=== PATIENT | female | born 1950 | race Caucasian/White ===

== ENCOUNTER → 2023-10-23 08:44 | Outpatient (REF) | payer MEDICARE, OTHER, SELFPAY | LOC: WDC 08:44 | PROVIDERS: ATTENDING PHYSICIAN Obstetrics & Gynecology; FAMILY PHYSICIAN Family Medicine | DX: Z12.31 Encounter for screening mammogram for malignant neoplasm of breast (principal) | CPT/HCPCS: 77063; 77067 ==

== ENCOUNTER → 2023-10-30 08:47 | Outpatient (REF) | payer MEDICARE, OTHER, SELFPAY | LOC: WDC 08:47 | PROVIDERS: ATTENDING PHYSICIAN Obstetrics & Gynecology; FAMILY PHYSICIAN Family Medicine | DX: R92.8 Other abnormal and inconclusive findings on diagnostic imaging of breast (principal) | CPT/HCPCS: 76642 ==

== ENCOUNTER → 2023-11-05 09:51 | Outpatient (REF) | payer MEDICARE, OTHER, SELFPAY ==
--- NOTE | 2023-11-05 13:35 | OID.BR.INTR ---
[facility]igator - Initial
- -
Date of Contact: 11/05/23
Met with patient. Patient given written information on navigator services available at [facility]. Will follow up as needed per protocol.
== END ==
LOC: WDC 09:51
PROVIDERS: ATTENDING PHYSICIAN Obstetrics & Gynecology; FAMILY PHYSICIAN Family Medicine
DX: N63.22 Unspecified lump in the left breast, upper inner quadrant (principal); N63.21 Unspecified lump in the left breast, upper outer quadrant
CPT/HCPCS: 88305; 19083; 77065; 88341; 88342; 88360; A4648

== ENCOUNTER → 2023-11-13 12:43 | Outpatient (REF) | payer MEDICARE, OTHER, SELFPAY | LOC: WDC 12:43 | PROVIDERS: ATTENDING PHYSICIAN Surgery; FAMILY PHYSICIAN Family Medicine | DX: R92.2 Inconclusive mammogram (principal); C50.412 Malignant neoplasm of upper-outer quadrant of left female breast | CPT/HCPCS: 76641 ==

== ENCOUNTER → 2023-11-19 13:02 | Outpatient (REF) | payer MEDICARE, OTHER, SELFPAY | LOC: WDC 13:02 | PROVIDERS: ATTENDING PHYSICIAN Surgery | DX: C50.412 Malignant neoplasm of upper-outer quadrant of left female breast (principal); N63.21 Unspecified lump in the left breast, upper outer quadrant | CPT/HCPCS: 19285; 77065; A4648 ==

== ENCOUNTER → 2023-11-20 07:33 | Outpatient (REF) | payer MEDICARE, OTHER, SELFPAY | LOC: WDC 07:33 | PROVIDERS: ATTENDING PHYSICIAN Surgery | DX: C50.412 Malignant neoplasm of upper-outer quadrant of left female breast (principal) | CPT/HCPCS: 88305; 88307; 76098 ==

== ENCOUNTER → 2024-04-29 14:18 | Outpatient (REF) | payer MEDICARE, OTHER, SELFPAY | LOC: WDC 14:18 | PROVIDERS: ATTENDING PHYSICIAN Surgery; FAMILY PHYSICIAN Family Medicine | DX: R92.8 Other abnormal and inconclusive findings on diagnostic imaging of breast (principal); C50.412 Malignant neoplasm of upper-outer quadrant of left female breast | CPT/HCPCS: 76642 ==

== ENCOUNTER → 2024-09-09 09:47 | Outpatient (REF) | payer MEDICARE, OTHER, SELFPAY | LOC: RAD 09:47 | PROVIDERS: ATTENDING PHYSICIAN Family Medicine; REFERRING PHYSICIAN Internal Medicine Cardiovascular Disease | DX: I65.23 Occlusion and stenosis of bilateral carotid arteries (principal) | CPT/HCPCS: 93880 ==

== ENCOUNTER → 2024-10-02 08:38 | Outpatient (REF) | payer MEDICARE, OTHER, SELFPAY | LOC: HWRAD 08:38 | PROVIDERS: ATTENDING PHYSICIAN Obstetrics & Gynecology; FAMILY PHYSICIAN Family Medicine; REFERRING PHYSICIAN Internal Medicine Hematology & Oncology | DX: N89.8 Other specified noninflammatory disorders of vagina (principal) | CPT/HCPCS: 76830; 76856 ==

== ENCOUNTER → 2024-10-28 07:37 | Outpatient (REF) | payer MEDICARE, OTHER, SELFPAY | LOC: WDC 07:37 | PROVIDERS: ATTENDING PHYSICIAN Family Medicine Geriatric Medicine; FAMILY PHYSICIAN Family Medicine | DX: M81.0 Age-related osteoporosis without current pathological fracture (principal); Z13.820 Encounter for screening for osteoporosis; Z12.31 Encounter for screening mammogram for malignant neoplasm of breast; Z12.39 Encounter for other screening for malignant neoplasm of breast; Z85.3 Personal history of malignant neoplasm of breast; R92.30 Dense breasts, unspecified | CPT/HCPCS: 77063; 77067; 77080 ==

== ENCOUNTER → 2024-11-03 09:07 | Outpatient (REF) | payer MEDICARE, OTHER, SELFPAY ==
[2024-11-03 11:58] LABS: Blood Urea Nitrogen 13 mg/dl (7-17); Calcium 8.9 mg/dl (8.4-10.2); Carbon Dioxide 26 mmol/L (22-30); Chloride 109 mmol/L (98-107); Glucose 105 mg/dl (70-99); Potassium 4.0 mmol/L (3.5-5.1); Sodium 144 mmol/L (135-145); eGFR > 60.00
== END ==
LOC: SDSPAT 09:07
PROVIDERS: ATTENDING PHYSICIAN Obstetrics & Gynecology; FAMILY PHYSICIAN Family Medicine
DX: N85.00 Endometrial hyperplasia, unspecified (principal)
CPT/HCPCS: 36415; 80048; 93005

== ENCOUNTER 2024-11-14 06:28 | Day surgery (SDC) | payer MEDICARE, OTHER, SELFPAY ==
[2024-11-03 13:58] VITALS: BMI 23.7
--- NOTE | 2024-11-04 13:21 | PTCARENOTE ---
Patients 11/03 ECG abnormal- reviewed by Dr. Lancaster- no additional interventions required
[2024-11-14] VITALS (8 sets, daily range): BP systolic 125–154; BP diastolic 65–74; BMI 23.7
[2024-11-14] MEDS: NORMOSOL-R/PLASMALYTE-A 1000 IV (09:18)
== END 2024-11-14 13:40 | disposition home or self-care (01) ==
LOC: SDS 06:28
PROVIDERS: ATTENDING PHYSICIAN Obstetrics & Gynecology
DX: N85.00 Endometrial hyperplasia, unspecified (principal); Z79.810 Long term (current) use of selective estrogen receptor modulators (SERMs)
CPT/HCPCS: 58558; 88305

== ENCOUNTER → 2024-11-17 09:45 | Outpatient (REF) | payer MEDICARE, OTHER, SELFPAY | LOC: WDC 09:45 | PROVIDERS: ATTENDING PHYSICIAN Surgery; FAMILY PHYSICIAN Family Medicine | DX: C50.412 Malignant neoplasm of upper-outer quadrant of left female breast (principal) | CPT/HCPCS: 76641 ==

== ENCOUNTER 2025-01-27 06:23 | Day surgery (SDC) | payer MEDICARE, OTHER, SELFPAY | END 2025-01-27 09:08 | disposition home or self-care (01) | LOC: GI 06:23 | PROVIDERS: ATTENDING PHYSICIAN Surgery; FAMILY PHYSICIAN Family Medicine | DX: R15.2 Fecal urgency (principal); R19.4 Change in bowel habit; K64.4 Residual hemorrhoidal skin tags; K64.8 Other hemorrhoids; K57.30 Diverticulosis of large intestine without perforation or abscess without bleeding | CPT/HCPCS: 45378 ==

== ENCOUNTER → 2025-03-09 08:41 | Outpatient (REF) | payer MEDICARE, OTHER, SELFPAY | LOC: WDC 08:41 | PROVIDERS: ATTENDING PHYSICIAN Nurse Practitioner Adult Health | DX: N64.4 Mastodynia (principal) | CPT/HCPCS: 76642 ==